=== PATIENT | male | born 1945 | race American Indian/Alaskan Native ===

== ENCOUNTER 2017-06-23 06:05 | Day surgery (SDC) | payer MEDICARE, OTHER ==
[2017-06-23] MEDS ORDERED: NACL 0.9% 1000 ML 1,000 ML IV SCH (07:00)
[2017-06-23] MEDS ORDERED: NACL 0.9% 1000 ML 1,000 ML ONE (07:26)
[2017-06-23 07:37] LABS: Blood Urea Nitrogen 27 mg/dL (9-20)
[2017-06-23 10:57] VITALS: BP 169/88
--- NOTE | 2017-06-24 08:28 | Cat Scan Report ---
FINAL REPORT EXAM: CT ANGIO ABD/FEMORAL ABD AORTA HISTORY: Atherosclerosis of [place] arteries, B/L extremitie TECHNIQUE: CT images are acquired through the abdominal aorta extending through both lower extremities following intravenous administration of contrast. Transaxial, coronal and sagittal Reformations with maximal intensity projection are provided. PRIORS: None FINDINGS: The abdominal aorta is normal in course and caliber with densely scattered atherosclerosis. There is severe stenosis in both renal arteries within 2 centimeters of the aortic ostia seen on the right on axial series 3, image 62 and on the left on image 66. There is complete occlusion of both femoral arteries with densely scattered atherosclerosis extending through the popliteal trifurcation. Three-vessel opacification is seen in the right leg to the level of the ankle secondary to distal reconstitution of flow and retrograde filling. In the left leg, there is severe stenosis and lack of contrast opacification throughout the length of the left posterior tibial artery. The anterior tibial and peroneal arteries in the left leg are opacified at the level of the tibial plafond, however there is severe atherosclerosis and stenosis throughout entire portion of the anterior tibial artery. There is coronary artery disease. Imaged intrathoracic contents are otherwise unremarkable. The liver, gallbladder, pancreas, and spleen are unremarkable. There is thickening of the left adrenal gland without focal nodule. Kidneys are normal in size, axis and position. No hydroureteronephrosis. There are 3 millimeter nonobstructive stones in both collecting systems. A right lower pole renal cyst measures up to 19 millimeters. The urinary bladder is unremarkable. There are numerous prostatic radiodensities. Small and large bowel are normal in caliber. No free air, free fluid, or lymphadenopathy identified. No acute or aggressive appearing skeletal findings. IMPRESSION: Complete bilateral femoral arterial occlusion with severe stenosis extending through the popliteal trifurcations. Additional severe stenosis is present in the major arteries of the left greater than right lower extremity, as detailed above. Coronary artery disease.
== END 2017-06-23 14:25 | disposition home or self-care (01) ==
LOC: CATHLABREC 06:05
PROVIDERS: ATTEND Surgery Vascular Surgery
DX: I70.203 Unspecified atherosclerosis of native arteries of extremities, bilateral legs (principal); N20.0 Calculus of kidney; N28.1 Cyst of kidney, acquired; I25.10 Atherosclerotic heart disease of native coronary artery without angina pectoris
CPT/HCPCS: 36415; 75635; 82565; 84520; 96360; 96361; J7030; Q9967

== ENCOUNTER 2018-10-04 08:19 | Observation (INO) | payer MEDICARE ==
[~2018-10-04 08:19] MED LIST: ANCEF/STERILE WATER 2 GM/20 ML 2 GM/20 ML SYRINGE IV NR
[2018-10-04 09:05] LABS: Basophils % (Auto) 0.6 % (0.0-1.8); Eosinophils # (Auto) 0.1 K/mm3 (0.0-0.4); Eosinophils % (Auto) 1.8 % (0.0-4.3); Hematocrit 39.9 % (35.5-45.6); Hemoglobin 12.9 gm/dl (11.8-15.2); Lymphocytes # (Auto) 1.5 K/mm3 (1.2-5.4); Lymphocytes % (Auto) 25.7 % (13.4-35.0); Mean Corpuscular HGB Conc 32 % (32-34); Mean Corpuscular Volume 87 fl (84-94); Monocytes # (Auto) 0.4 K/mm3 (0.0-0.8); Monocytes % (Auto) 7.6 % (0.0-7.3); Platelet Count 144 K/mm3 (140-440); Red Blood Count 4.61 M/mm3 (3.65-5.03); Red Cell Distribution Width 15.3 % (13.2-15.2)
[2018-10-04 09:20] LABS: Calcium 9.3 mg/dL (8.4-10.2)
[2018-10-04 09:30] LABS: INR 0.99 (0.87-1.13)
[2018-10-04 09:31] LABS: Partial Thromboplastin Time 27.5 Sec. (24.2-36.6)
[2018-10-04] MEDS: NACL 0.9% 1000 ML 1,000 ML IV SCH ×2 (09:48→11:25)
[2018-10-04] MEDS ORDERED: HEPARIN/NS 5000 UNIT/500ML(CATH LAB) 1,000 ML IR ONE (10:56)
[2018-10-04] MEDS ORDERED: XYLOCAINE 2% INFILTRATI ONE (10:56)
[2018-10-04] MEDS ORDERED: HEPARIN 10,000 UNITS/10 ML ONE (10:56)
[2018-10-04] MEDS ORDERED: CALAN ONE (10:56)
[2018-10-04] MEDS ORDERED: ANCEF/STERILE WATER 2 GM/20 ML 2 GM/20 ML SYRINGE IV ONE ×2 (10:57→10:58)
[2018-10-04] MEDS ORDERED: NITROGLYCERIN SYRINGE 0 ML ONE (10:57)
[2018-10-04] MEDS ORDERED: SUBLIMAZE ONE ×2 (11:28→12:58)
[2018-10-04] MEDS ORDERED: VERSED ONE ×2 (11:28→12:58)
[2018-10-04] MEDS: VERSED ONE ×2 (12:36→12:58)
[2018-10-04] MEDS: SUBLIMAZE ONE ×2 (12:36→12:58)
--- NOTE | 2018-10-04 14:58 | Operative Report ---
Operative Report Operative Report: Operative note: Date: 10/03/2018 Preoperative diagnosis: Life limiting short distance claudication of left lower extremity Postoperative diagnosis: Same. Operation: Ultrasound guided right common femoral access. Arterectomy of left superficial femoral and popliteal arteries. Surgeon: Constanza Weinberg. Asst.: None Anesthesia: Local with moderate sedation EBL: 75 mL Findings: Occluded superficial femoral artery from proximal portion was in-stent stenosis and institution of above-knee popliteal/distal SFA artery. Peroneal a rtery runoff Indications: 72-year-old male came in as a follow-up to the office complaining of left limiting short distance claudication of the left lower extremity with some multiple claudication of the right side. Patient underwent noninvasive arterial studies that showed decreased blood flow of bilateral lower extremity was left worse. Patient was explained risks, benefits and alternatives to procedure of performing revascularization of the left lower extremity. He understood and signed informed consent. Operative details: Patient was brought to the [facility] and placed in supine position. He has bilateral groins and left foot were prepped and draped in sterile fashion. Timeout was performed. Right femoral artery was accessed under continuous ultrasound guidance using micropuncture technique. It was changed to a 5 Divehi access sheath over a Bentson wire. Omni Flush catheter was next positioned in the distal aorta and aortoiliac injection was performed showing distal aorta and bilateral iliac arteries. The Soriano wire was advanced into the contralateral side and Omni Flush catheter was positioned in the left femoral artery. Angiogram with runoff was performed with findings mentioned above. The wire was maneuvered into profunda artery. Omni Flush catheter was removed and a 7 x 45 destination sheath was positioned at the left common femoral artery. Patient was heparinized with 5000 units of heparin. Using Navicross catheter and V18 wire I was able to cross the occluded area successfully and confirmed to be intravascular. Next, I deployed a 5 mm spider wire in the TPT trunk. HokeOne- atherectomy using LS-M device was performed. Next, a coated balloon angioplasty was performed with 4 mm in the popliteal distal artery and 5 mm throughout superficial femoral artery. Postintervention angiogram showed successful recanalization of occluded segment and no distal embolization. Spid er wire was retrieved successfully. Access site was sealed using 6 Divehi Angio-Seal. Patient tolerated the procedure well and was transferred back in stable condition.
--- NOTE | 2018-10-04 15:02 | Short Stay Summary ---
Short Stay Documentation Date of service: 10/04/18 - History H&P: obtained from office - Allergies and Medications Current Medications: Allergies Sulfa (Sulfonamide Antibiotics) Allergy (Verified 06/23/17 06:46) Rash Home Medications Medication Instructions Recorded Confirmed Last Taken Type Metoprolol [Lopressor TAB] 25 mg PO BID 06/23/17 10/04/18 10/03/18 History 25mg glipiZIDE [Glipizide] 5 mg PO DAILY 06/23/17 10/04/18 10/03/18 History 5mg hydroCHLOROthiazide [HCTZ] 25 mg PO DAILY 06/23/17 10/04/18 10/03/18 History 25mg raNITIdine HCl [Zantac 300 MG TAB] 300 mg PO DAILY 06/23/17 10/04/18 10/03/18 History 300mg Aspirin [Adult Low Dose Aspirin EC] 81 mg PO DAILY 10/04/18 10/04/18 10/03/18 History 81mg Clopidogrel Bisulfate [Clopidogrel] 75 mg PO DAILY 10/04/18 10/04/18 10/03/18 History 75mg Lisinopril [Zestril] 40 mg PO DAILY 10/04/18 10/04/18 10/03/18 History Simvastatin [Zocor TAB] 40 mg PO QHS 10/04/18 10/04/18 10/03/18 History Active Medications Cefazolin Sodium (Ancef/Sterile Water 2 Gm/20 Ml) 2 gm in 20 mls @ 80 mls/hr IV PREOP NR; Protocol Stop: 10/04/18 23:59 Sodium Chloride (Nacl 0.9% 1000 Ml) 1,000 mls @ 42 mls/hr IV DIRECT OCTAVIO Last Admin: 10/04/18 11:25 Dose: 42 mls/hr Documented by: - Brief post op/procedure progress note Date of procedure: 10/04/18 Pre-op diagnosis: life limiting short distance claudication on the left Post-op diagnosis: same Procedure: Ultrasound-guided right femoral access. Arthrectomy of left superficial femoral and popliteal arteries Anesthesia: MAC Findings: Occluded left superficial femoral artery, peroneal runoff Surgeon: JAMARI KENDRICK Estimated blood loss: 50-100ml Condition: stable - Disposition Condition at discharge: Good Disposition: DC-01 TO HOME OR SELFCARE Short Stay Discharge Plan Diet: regular Special Instructions: no heavy lifting Follow up with: DEJUAN MARSHALL MD [Primary Care Provider] - 7 Days JAMARI KENDRICK DO [Staff Physician] - 14 Days Prescriptions: Acetaminophen/Codeine [Tylenol /Codeine # 3 tab] 1 tab PO Q6H PRN #14 tab PRN Reason: Pain , Severe (7-10)
[2018-10-04 16:30] LABS: Hemoglobin 11.9 gm/dl (11.8-15.2)
[2018-10-04] MEDS ORDERED: D50W (25GM) Syringe IV ONE (16:43)
[2018-10-04 18:11] LABS: INR 1.08 (0.87-1.13)
[2018-10-04 18:12] LABS: Partial Thromboplastin Time 31.9 Sec. (24.2-36.6)
--- NOTE | 2018-10-04 18:21 | Event Note ---
Date: 10/04/18 Procedure called by the [employer] PACU nurse the patient had episodes of hypotension that was followed by another episode patient was diaphoretic and had a short period of poor mentation. Stat H&H was ordered as well as CT scan to rule out retroperitoneal hematoma. Hemoglobin was unchanged and CAT scan didn't reveal any evidence of hematoma. Now on reevaluation patient looks good, mentating well, blood pressure stable. Will admit patient for observation.
[2018-10-04] MEDS ORDERED: MORPHINE IV PRN (18:27)
[2018-10-04] MEDS ORDERED: ZOFRAN IV PRN (18:27)
[2018-10-04] MEDS ORDERED: NORCO 5/325 PO PRN (18:27)
[2018-10-04] MEDS ORDERED: NARCAN 0.4 MG/1 ML IV PRN (18:27)
[2018-10-04] MEDS ORDERED: TYLENOL PO PRN (18:27)
[2018-10-04 18:30] LABS: Creatine Kinase MB 3.7 ng/mL (0.0-4.0)
[2018-10-04 18:32] LABS: Calcium 8.7 mg/dL (8.4-10.2)
--- NOTE | 2018-10-04 18:47 | Cat Scan Report ---
PROCEDURE: CT ABDOMEN PELVIS WO CON TECHNIQUE: Standard unenhanced CT of the abdomen and pelvis. Coronal and sagittal reconstruction was also performed. CT DOSE LENGTH PRODUCT: 1055.6 mGycm HISTORY: Drop in BP COMPARISON: None FINDINGS: There is no evidence for intraperitoneal, retroperitoneal, or intramuscular hemorrhage. No abnormal f luid collection in the abdomen or pelvis is seen. Within the abdomen, the liver, spleen, pancreas, gallbladder, adrenal glands, and left kidney are unr emarkable. There is a 2.0 x 2.2 x 2.5 cm cyst off the lower pole right kidney posteriorly. This shoul d be confirmed as a cyst by ultrasound. No evidence for retroperitoneal or pelvic lymphadenopathy is seen. The bowel loops have normal calibe r. No soft tissue mass, fluid collection, inflammatory change, or free air is seen within the abdomen or pelvis. The appendix is Normal. Moderate calcification of aorta is seen. Within the pelvis, the bladder is nearly collapsed. The prostate is small in size and contains multip le small radiation seeds. Calcification of the seminal vesicles is noted. No evidence for mass or lym phadenopathy is seen in the pelvis. Images through the upper abdomen include the lung bases which are expanded and clear. Bony structures show moderate disc space narrowing from L1 through L5 bilateral facet joint degenerat sonali changes and large osteophytes anteriorly at these levels. Posterior spurring throughout these lev els causes bilateral neural foraminal narrowing. IMPRESSION: 1. No acute intra-abdominal process noted. No evidence for intraperitoneal, retroperitoneal, or intra muscular hemorrhage is seen 2. Exophytic focus off the lower pole right kidney, probably a cyst. However, this should be confirme d by ultrasound 3. Degenerative changes present throughout the lumbar spine This document is electronically signed by Beatriz Quispe MD., October 04 2018 06:46:00 PM ET
[2018-10-04] MEDS ORDERED: NACL 0.9% 1000 ML 1,000 ML IV SCH (19:00)
--- NOTE | 2018-10-04 19:30 | Event Note ---
Date: 10/04/18 Cardiology note dictated #1 transient hypotension and diaphoresis etiology uncertain? Vasovagal reaction #2 status post peripheral vascular surgery #3 hypertension #4 hyperlipidemia #5 diabetes #6 chronic smoking Patient responded to IV fluids and doing better at this time EKG shows no acute abnormalities. First set of cardiac enzymes are negative. CT scan and hemoglobin are stable. Plan is to continue monitoring closely. Thank you for allowing me to participate in the care of this gentleman Dr. CAROL Abdul
--- NOTE | 2018-10-04 19:38 | Consultation ---
History of Present Illness - Reason for Consult Consult date: 10/04/18 Requesting physician: JAMARI KENDRICK - History of Present Illness 72 YO Male with HTN, DM, HLD, CKD, PVD presents to [facility] for elective vascular procedure. Patient experienced postoperative syncope. Consult placed for medical management. Pt seen and evaluated upon arrival to his room. Pt de nies fever, chills, CP, Palpitations, NVD, Trauma, Productive cough, recent ill contacts, skin rash, BRBPR, or Hemoptysis. No reported nursing events. Past History Past Medical History: diabetes, hypertension, hyperlipidemia, PVD Past Surgical History: Other (Atherectomy, ) Social history: , lives with family, smoking Family history: diabetes, hypertension Medications and Allergies Allergies Allergy/AdvReac Type Severity Reaction Status Date / Time Sulfa (Sulfonamide Allergy Rash Verified 06/23/17 06:46 Antibiotics) Home Medications Medication Instructions Recorded Confirmed Last Taken Type Metoprolol [Lopressor TAB] 25 mg PO BID 06/23/17 10/04/18 10/03/18 History 25mg glipiZIDE [Glipizide] 5 mg PO DAILY 06/23/17 10/04/18 10/03/18 History 5mg hydroCHLOROthiazide [HCTZ] 25 mg PO DAILY 06/23/17 10/04/18 10/03/18 History 25mg raNITIdine HCl [Zantac 300 MG TAB] 300 mg PO DAILY 06/23/17 10/04/18 10/03/18 History 300mg Acetaminophen/Codeine [Tylenol 1 tab PO Q6H PRN #14 tab 10/04/18 Unknown Rx /Codeine # 3 tab] Aspirin [Adult Low Dose Aspirin EC] 81 mg PO DAILY 10/04/18 10/04/18 10/03/18 History 81mg Clopidogrel Bisulfate [Clopidogrel] 75 mg PO DAILY 10/04/18 10/04/18 10/03/18 History 75mg Lisinopril [Zestril] 40 mg PO DAILY 10/04/18 10/04/18 10/03/18 History Simvastatin [Zocor TAB] 40 mg PO QHS 10/04/18 10/04/18 10/03/18 History Active Meds: Active Medications Acetaminophen (Tylenol) 650 mg PO Q4H PRN PRN Reason: Pain MILD(1-3)/Fever >100.5/ART Acetaminophen/Hydrocodone Bitart ([place] 5/325) 2 each PO Q6H PRN PRN Reason: Pain, Moderate (4-6) Aspirin (Halfprin Ec) 81 mg PO DAILY [facility] Clopidogrel Bisulfate (Plavix) 75 mg PO DAILY [facility] Famotidine (Pepcid) 10 mg PO BID [facility] Glipizide (Glucotrol) 5 mg PO DAILY [facility] Hydrochlorothiazide (Hctz) 25 mg PO DAILY [facility] Cefazolin Sodium (Ancef/Sterile Water 2 Gm/20 Ml) 2 gm in 20 mls @ 80 mls/hr IV PREOP NR; Protocol Stop: 10/04/18 23:59 Sodium Chloride (Nacl 0.9% 1000 Ml) 1,000 mls @ 42 mls/hr IV DIRECT OCTAVIO Last Admin: 10/04/18 11:25 Dose: 42 mls/hr Documented by: Sodium Chloride (Nacl 0.9% 1000 Ml) 1,000 mls @ 75 mls/hr IV DIRECT OCTAVIO Last Admin: 10/04/18 18:54 Dose: 75 mls/hr Documented by: Insulin Human Lispro (Humalog) 0 unit SUB-Q ACHS OCTAVIO; Protocol Lisinopril (Zestril) 40 mg PO DAILY [facility] Metoprolol Tartrate (Lopressor) 25 mg PO BID [facility] Miscellaneous Medication (Simvastatin) 40 mg PO QHS [facility] Morphine Sulfate (Morphine) 2 mg IV Q4H PRN PRN Reason: Pain, Moderate (4-6) Naloxone HCl (Narcan 0.4 Mg/1 Ml) 0.1 mg IV Q2MIN PRN PRN Reason: Res Rate </= 8 or 02 SAT < 92% Ondansetron HCl (Zofran) 4 mg IV Q8H PRN PRN Reason: Nausea And Vomiting Review of Systems Constitutional: no weight loss, no weight gain, no fever, no chills Ears, nose, mouth and throat: no ear pain, no tinnitis, no decreased hearing Cardiovascular: syncope, no chest pain, no orthopnea, no palpitations, no rapid/irregular heart beat, no edema Respiratory: no cough, no cough with sputum, no excessive sputum, no shortness of breath, no dyspnea on exertion Gastrointestinal: no nausea, no vomiting, no diarrhea, no constipation Genitourinary Male: no dysuria, no hematuria, no flank pain, no discharge, no urinary frequency, no nocturia Rectal: no pain, no incontinence, no bleeding Musculoskeletal: no neck pain, no low back pain Integumentary: no rash, no pruritis, no redness, no sores, no wounds Neurological: no head injury, no transient paralysis, no paralysis, no weakness, no parathesias Psychiatric: no anxiety, no memory loss, no change in sleep habits, no insomnia, no hypersomnia, no change in appetite, no change in libido Exam - Constitutional Vitals: Temp Pulse Resp BP Pulse Ox 97.8 F 67 15 136/74 100 10/04/18 13:33 10/04/18 19:30 10/04/18 19:30 10/04/18 19:30 10/04/18 19:30 General appearance: Present: no acute distress, well-nourished - EENT Eyes: Present: PERRL ENT: hearing intact, clear oral mucosa - Neck Neck: Present: supple, normal ROM - Respiratory Respiratory effort: normal Respiratory: bilateral: CTA - Cardiovascular Heart Sounds: Present: S1 & S2. Absent: rub, click - Extremities Extremities: pulses symmetrical, No edema Peripheral Pulses: within normal limits - Abdominal General gastrointestinal: Present: soft, non-tender, non-distended, normal bowel sounds Male genitourinary: Present: normal - Integumentary Integumentary: Present: clear, warm, dry - Musculoskeletal Musculoskeletal: gait normal, strength equal bilaterally - Psychiatric Psychiatric: appropriate mood/affect, intact judgment & insight - Neurologic Neurologic: CNII-XII intact, moves all extremities Results - Labs CBC & Chem 7: 10/05/18 04:58 10/04/18 17:49 Labs: Abnormal lab results 10/04/18 10/04/18 10/04/18 Range/Units 08:34 08:34 16:45 RDW 15.3 H (13.2-15.2) % [place] % (Auto) 7.6 H (0.0-7.3) % Chloride (98-107) mmol/L BUN 38 H (9-20) mg/dL Creatinine 1.6 H (0.8-1.5) mg/dL Glucose 103 H (75-100) mg/dL POC Glucose 122 H (70-105) Total Creatine Kinase (55-170) units/L 10/04/18 10/04/18 Range/Units 17:45 17:49 RDW (13.2-15.2) % [place] % (Auto) (0.0-7.3) % Chloride 108.8 H (98-107) mmol/L BUN 37 H (9-20) mg/dL Creatinine 1.6 H (0.8-1.5) mg/dL Glucose 120 H (75-100) mg/dL POC Glucose (70-105) Total Creatine Kinase 332 H (55-170) units/L Assessment and Plan - Patient Problems (1) Syncope Current Visit: Yes Status: Acute Qualifiers: Syncope type: vasovagal syncope Qualified Code(s): R55 - Syncope and collapse Plan to address problem: IVF resuscitation therapy, remote telemetry, cardiology consulted, (2) HTN (hypertension) Current Visit: Yes Status: Acute Qualifiers: Hypertension type: essential hypertension Qualified Code(s): I10 - Essential (primary) hypertension Plan to address problem: Monitor bp q shift, continue medical management, (3) HLD (hyperlipidemia) Current Visit: Yes Status: Acute Plan to address problem: Statin therapy, lipid panel (4) Nicotine dependence Current Visit: Yes Status: Acute Qualifiers: Substance use status: in withdrawal Plan to address problem: Smoking cessation counseling, supportive care. (5) PVD (peripheral vascular disease) Current Visit: Yes Status: Acute Plan to address problem: S/P Atherectomy as per primary team.
[2018-10-04] MEDS ORDERED: NON-FORMULARY (Simvastatin 40 MG) PO SCH (22:00)
[2018-10-04] MEDS: PEPCID PO SCH (22:08)
[2018-10-05] MEDS: LOPRESSOR PO SCH ×2 (03:15→09:51)
[2018-10-05] MEDS: HumaLOG SUB-Q SCH ×3 (03:15→12:46)
[2018-10-05 05:33] LABS: Hematocrit 33.2 % (35.5-45.6); Hemoglobin 10.8 gm/dl (11.8-15.2)
[2018-10-05 06:13] LABS: Calcium 8.7 mg/dL (8.4-10.2)
[2018-10-05] MEDS ORDERED: KIONEX PO ONE (08:25)
[2018-10-05] MEDS ORDERED: D50W (25GM) Vial IV STA (08:27)
[2018-10-05] MEDS ORDERED: D50W (25GM) Syringe IV STA (08:57)
[2018-10-05] MEDS ORDERED: HumuLIN R IV SCH (09:00)
--- NOTE | 2018-10-05 09:05 | Consultation ---
CARDIOLOGY EVALUATION HISTORY OF PRESENT ILLNESS: The patient is a 72-year-old gentleman who is known to have peripheral vascular disease and underwent atherectomy of left superficial femoral and popliteal arteries. The patient is known to have a longstanding history of hypertension, diabetes and hyperlipidemia. Postop, in the recovery room, he had an episode of hypotension and profuse diaphoresis. The patient is seen for cardiac consultation at this time. The patient denies any chest pain, difficulty in breathing or palpitations. The patient was given intravenous fluids with improvement. At present, he is feeling much better. A CT scan has been done to rule out retroperitoneal hematoma and it was negative. Hemoglobin and hematocrit are satisfactory. First set of cardiac enzymes are satisfactory. EKG shows no acute abnormalities. REVIEW OF SYSTEMS: Essentially unremarkable. PHYSICAL EXAMINATION: GENERAL: Adult gentleman, well built, well nourished, in no distress, pleasant and cooperative. SKIN: Warm. VITAL SIGNS: Blood pressure is 118/70, pulse 84, oxygen saturation is 100, respirations 18. HEAD, EYES, EARS, NOSE AND THROAT: Unremarkable. NECK: Supple. No thyromegaly. Both carotids are palpable and equal. Neck veins are flat. CHEST: Symmetrical. LUNGS: Clear. CARDIOVASCULAR: S1 and S2 are heard. No S3. ABDOMEN: Soft, nontender, no hepatosplenomegaly. EXTREMITIES: No calf tenderness. Peripheral pulses are satisfactory. Extremities are noted to be warm. DIAGNOSTIC DATA: EKG sinus rhythm, possible old inferior ND, minor anterior ST changes. LABORATORY DATA: Hemoglobin 12.9 and 11.9, potassium 4.4, BUN 37, creatinine 1.6, blood sugar 120. Troponin less than 0.010. IMPRESSION: 1. Transient hypotension in the setting of postop femoral atherectomy, ?vasovagal reaction. 2. Hypertension. 3. Diabetes. 4. Hyperlipidemia. 5. History of smoking. The patient is seen for cardiac evaluation. Clinically, cardiac status is stable. So far enzymes are negative. CT scan is negative. The patient will be monitored and followed closely with you. Discussed with the family members also. Thank you for allowing me to participate in the care of this pleasant gentleman. JOB# [id number] KBM/[id number]
[2018-10-05] MEDS: PEPCID PO SCH (09:50)
[2018-10-05] MEDS ORDERED: HCTZ PO SCH (10:00)
[2018-10-05] MEDS ORDERED: HALFPRIN EC PO SCH (10:00)
[2018-10-05] MEDS ORDERED: GLUCOTROL PO SCH (10:00)
[2018-10-05] MEDS ORDERED: ZESTRIL PO SCH (10:00)
[2018-10-05] MEDS ORDERED: PLAVIX PO SCH (10:00)
--- NOTE | 2018-10-05 10:29 | Progress Note ---
Assessment and Plan Pt s/p perc arterial intervention. Post-procedure the pt developed hypotension and became diaphoretic. He was evaluated for possible post procedural RP bleed which proved to be negative. His condition improved. Cardiology was consulted to kevin. It was felt that this likely represented a vasovagal event. He was kept overnight to follow. He has had no further issues, and appears stable for d/c. Discussed with cardiology. Pt to f/u as outpt. - Patient Problems (1) Vasovagal episode Current Visit: Yes Status: Suspected (2) PVD (peripheral vascular disease) Current Visit: Yes Status: Acute (3) Hypotension after procedure Current Visit: Yes Status: Resolved (4) HLD (hyperlipidemia) Current Visit: Yes Status: Acute (5) HTN (hypertension) Current Visit: Yes Status: Acute Qualifiers: Hypertension type: essential hypertension Qualified Code(s): I10 - Essential (primary) hypertension (6) Nicotine dependence Current Visit: Yes Status: Acute Qualifiers: Substance use status: in withdrawal Subjective Date of service: 10/05/18 Interval history: Pt is awake and alert, without any further complaints overnight. OOB ambulating in the room without difficulty. Objective - Constitutional Vitals: Vital Signs - 12hr 10/04/18 10/05/18 10/05/18 23:29 03:33 05:08 Temperature 98.3 F 98.1 F Pulse Rate 72 72 64 Respiratory 18 18 Rate Blood Pressure 123/70 135/63 O2 Sat by Pulse 99 99 Oximetry 10/05/18 09:48 Temperature Pulse Rate Respiratory Rate Blood Pressure O2 Sat by Pulse 98 Oximetry General appearance: Present: no acute distress - EENT Eyes: EOM intact ENT: hearing intact - Respiratory Respiratory effort: normal Extremities: no ischemia, normal temperature (right groin soft, bandage intact without signs of active bleeding. No obvious surrounding erythema or indura tion.) - Gastrointestinal General gastrointestinal: Present: soft, non-tender - Neurologic Neurologic: no focal deficits - Psychiatric Psychiatric: appropriate mood/affect, intact judgment & insight, cooperative - Labs CBC & Chem 7: 10/05/18 04:58 10/05/18 04:58 Labs: Abnormal lab results 10/04/18 10/04/18 10/04/18 Range/Units 16:45 17:45 17:49 Hgb (11.8-15.2) gm/dl Hct (35.5-45.6) % Potassium (3.6-5.0) mmol/L Chloride 108.8 H (98-107) mmol/L BUN 37 H (9-20) mg/dL Creatinine 1.6 H (0.8-1.5) mg/dL Glucose 120 H (75-100) mg/dL POC Glucose 122 H (70-105) Total Creatine Kinase 332 H (55-170) units/L 10/04/18 10/05/18 10/05/18 Range/Units 22:28 00:42 04:58 Hgb 10.8 L (11.8-15.2) gm/dl Hct 33.2 L (35.5-45.6) % Potassium (3.6-5.0) mmol/L Chloride (98-107) mmol/L BUN (9-20) mg/dL Creatinine (0.8-1.5) mg/dL Glucose (75-100) mg/dL POC Glucose 149 H (70-105) Total Creatine Kinase 297 H (55-170) units/L 10/05/18 Range/Units 04:58 Hgb (11.8-15.2) gm/dl Hct (35.5-45.6) % Potassium 5.2 H (3.6-5.0) mmol/L Chloride 107.5 H (98-107) mmol/L BUN 36 H (9-20) mg/dL Creatinine (0.8-1.5) mg/dL Glucose 118 H (75-100) mg/dL POC Glucose (70-105) Total Creatine Kinase (55-170) units/L Medications & Allergies - Medications Allergies/Adverse Reactions: Allergies Sulfa (Sulfonamide Antibiotics) Allergy (Verified 06/23/17 06:46) Rash Home Medications: Home Medications Medication Instructions Recorded Confirmed Last Taken Type Metoprolol [Lopressor TAB] 25 mg PO BID 06/23/17 10/04/18 10/03/18 History 25mg glipiZIDE [Glipizide] 5 mg PO DAILY 06/23/17 10/04/18 10/03/18 History 5mg hydroCHLOROthiazide [HCTZ] 25 mg PO DAILY 06/23/17 10/04/18 10/03/18 History 25mg raNITIdine HCl [Zantac 300 MG TAB] 300 mg PO DAILY 06/23/17 10/04/18 10/03/18 History 300mg Acetaminophen/Codeine [Tylenol 1 tab PO Q6H PRN #14 tab 10/04/18 Unknown Rx /Codeine # 3 tab] Aspirin [Adult Low Dose Aspirin EC] 81 mg PO DAILY 10/04/18 10/04/18 10/03/18 History 81mg Clopidogrel Bisulfate [Clopidogrel] 75 mg PO DAILY 10/04/18 10/04/18 10/03/18 History 75mg Lisinopril [Zestril] 40 mg PO DAILY 10/04/18 10/04/18 10/03/18 History Simvastatin [Zocor TAB] 40 mg PO QHS 10/04/18 10/04/18 10/03/18 History Active Medications: Generic Name Dose Route Start Last Admin Trade Name Freq PRN Reason Stop Dose Admin Acetaminophen 650 mg 10/04/18 18:27 Tylenol PO Q4H PRN Pain MILD(1-3)/Fever >100.5/ART Acetaminophen/Hydrocodone Bitart 2 each 10/04/18 18:27 [place] 5/325 PO Q6H PRN Pain, Moderate (4-6) Aspirin 81 mg 10/05/18 10:00 10/05/18 09:50 Halfprin Ec PO 81 mg DAILY [facility] Administration Clopidogrel Bisulfate 75 mg 10/05/18 10:00 10/05/18 09:50 Plavix PO 75 mg DAILY [facility] Administration Famotidine 10 mg 10/04/18 22:00 10/05/18 09:50 Pepcid PO 10 mg BID [facility] Administration Glipizide 5 mg 10/05/18 10:00 10/05/18 09:50 Glucotrol PO 5 mg DAILY [facility] Administration Hydrochlorothiazide 25 mg 10/05/18 10:00 10/05/18 09:50 Hctz PO 25 mg DAILY [facility] Administration Sodium Chloride 1,000 mls @ 42 mls/hr 10/04/18 06:00 10/04/18 11:25 Nacl 0.9% 1000 Ml IV 42 mls/hr DIRECT [facility] Administration Sodium Chloride 1,000 mls @ 75 mls/hr 10/04/18 19:00 10/04/18 18:54 Nacl 0.9% 1000 Ml IV 75 mls/hr DIRECT [facility] Administration Insulin Human Lispro 0 unit 03/25/19 22:00 10/05/18 03:15 Humalog SUB-Q Not Given ACHS [facility] Protocol Insulin Human Regular 10 units 10/05/18 09:00 10/05/18 09:44 Humulin R IV 10/05/18 11:00 10 units ONCE [facility] Administration Metoprolol Tartrate 25 mg 10/04/18 22:00 10/05/18 09:51 Lopressor PO 25 mg BID [facility] Administration Miscellaneous Medication 40 mg 10/04/18 22:00 10/04/18 22:09 Simvastatin PO Not Given QHS [facility] Morphine Sulfate 2 mg 10/04/18 18:27 Morphine IV Q4H PRN Pain, Moderate (4-6) Naloxone HCl 0.1 mg 10/04/18 18:27 Narcan 0.4 Mg/1 Ml IV Q2MIN PRN Res Rate </= 8 or 02 SAT < 92% Ondansetron HCl 4 mg 10/04/18 18:27 Zofran IV Q8H PRN Nausea And Vomiting
--- NOTE | 2018-10-05 11:08 | Short Stay Summary ---
Short Stay Documentation Date of service: 10/05/18 Narrative H&P: See original Short stay. - History Past Medical History: diabetes, hypertension, hyperlipidemia, PVD Past Surgical History: Other (Atherectomy, ) Social history: , lives with family, smoking - Allergies and Medications Current Medications: Allergies Sulfa (Sulfonamide Antibiotics) Allergy (Verified 06/23/17 06:46) Rash Home Medications Medication Instructions Recorded Confirmed Last Taken Type Metoprolol [Lopressor TAB] 25 mg PO BID 06/23/17 10/04/18 10/03/18 History 25mg glipiZIDE [Glipizide] 5 mg PO DAILY 06/23/17 10/04/18 10/03/18 History 5mg hydroCHLOROthiazide [HCTZ] 25 mg PO DAILY 06/23/17 10/04/18 10/03/18 History 25mg raNITIdine HCl [Zantac 300 MG TAB] 300 mg PO DAILY 06/23/17 10/04/18 10/03/18 History 300mg Acetaminophen/Codeine [Tylenol 1 tab PO Q6H PRN #14 tab 10/04/18 Unknown Rx /Codeine # 3 tab] Aspirin [Adult Low Dose Aspirin EC] 81 mg PO DAILY 10/04/18 10/04/18 10/03/18 History 81mg Clopidogrel Bisulfate [Clopidogrel] 75 mg PO DAILY 10/04/18 10/04/18 10/03/18 History 75mg Lisinopril [Zestril] 40 mg PO DAILY 10/04/18 10/04/18 10/03/18 History Simvastatin [Zocor TAB] 40 mg PO QHS 10/04/18 10/04/18 10/03/18 History Active Medications Acetaminophen (Tylenol) 650 mg PO Q4H PRN PRN Reason: Pain MILD(1-3)/Fever >100.5/ART Acetaminophen/Hydrocodone Bitart ([place] 5/325) 2 each PO Q6H PRN PRN Reason: Pain, Moderate (4-6) Aspirin (Halfprin Ec) 81 mg PO DAILY [facility] Last Admin: 10/05/18 09:50 Dose: 81 mg Documented by: Clopidogrel Bisulfate (Plavix) 75 mg PO DAILY [facility] Last Admin: 10/05/18 09:50 Dose: 75 mg Documented by: Famotidine (Pepcid) 10 mg PO BID [facility] Last Admin: 10/05/18 09:50 Dose: 10 mg Documented by: Glipizide (Glucotrol) 5 mg PO DAILY [facility] Last Admin: 10/05/18 09:50 Dose: 5 mg Documented by: Hydrochlorothiazide (Hctz) 25 mg PO DAILY [facility] Last Admin: 10/05/18 09:50 Dose: 25 mg Documented by: Sodium Chloride (Nacl 0.9% 1000 Ml) 1,000 mls @ 75 mls/hr IV DIRECT [facility] Last Admin: 10/04/18 18:54 Dose: 75 mls/hr Documented by: Insulin Human Lispro (Humalog) 0 unit SUB-Q ACHS [facility]; Protocol Last Admin: 10/05/18 03:15 Dose: Not Given Documented by: Metoprolol Tartrate (Lopressor) 25 mg PO BID [facility] Last Admin: 10/05/18 09:51 Dose: 25 mg Documented by: Miscellaneous Medication (Simvastatin) 40 mg PO QHS [facility] Last Admin: 10/04/18 22:09 Dose: Not Given Documented by: Morphine Sulfate (Morphine) 2 mg IV Q4H PRN PRN Reason: Pain, Moderate (4-6) Naloxone HCl (Narcan 0.4 Mg/1 Ml) 0.1 mg IV Q2MIN PRN PRN Reason: Res Rate </= 8 or 02 SAT < 92% Ondansetron HCl (Zofran) 4 mg IV Q8H PRN PRN Reason: Nausea And Vomiting - Physical exam Extremities: no ischemia, normal temperature (right groin soft, bandage intact without signs of active bleeding. No obvious surrounding erythema or induration.) - Hospital course Hospital course: Pt presented for perc procedure. Following the procedure he became hypotensive and diaphoretic. This likely represented a vasovagal event. He improved, but was kept overnight for further observation. The pt appeared stable for d/c on 10/05/18. - Disposition Condition at discharge: Good Disposition: DC-01 TO HOME OR SELFCARE - Discharge Diagnoses (1) Vasovagal episode Status: Suspected (2) PVD (peripheral vascular disease) Status: Acute (3) Hypotension after procedure Status: Resolved (4) HLD (hyperlipidemia) Status: Acute (5) HTN (hypertension) Status: Acute Qualifiers: Hypertension type: essential hypertension Qualified Code(s): I10 - Essential (primary) hypertension (6) Nicotine dependence Status: Acute Qualifiers: Substance use status: in withdrawal Short Stay Discharge Plan Activity: advance as tolerated Weight Bearing Status: Weight Bear as Tolerated Diet: diabetic Wound: keep clean and dry Follow up with: DEJUAN MARSHALL MD [Primary Care Provider] - 7 Days JAMARI KENDRICK DO [Staff Physician] - 14 Days Forms: Post Arteriogram Instruct Prescriptions: Acetaminophen/Codeine [Tylenol /Codeine # 3 tab] 1 tab PO Q6H PRN #14 tab PRN Reason: Pain , Severe (7-10)
[2018-10-05 12:06] VITALS: BP 136/79
--- NOTE | 2018-10-05 13:22 | Progress Note ---
Assessment and Plan Currently stable cardiac status. BPs WNL today, orthostatics unremarkable. Suspect vasovagal episode post-operatively. Pt may discharge home from cardiology standpoint. Recommend follow up in our office with Dr. CAROL Abdul within 1-2 weeks of hospital discharge ([phone] The patient has been seen in conjunction with Dr. Dennis Abdul who agrees with the assessment and plan of care. - Patient Problems (1) Hypotension after procedure Current Visit: Yes Status: Resolved (2) Vasovagal episode Current Visit: Yes Status: Suspected (3) PVD (peripheral vascular disease) Current Visit: Yes Status: Chronic (4) History of hypertension Current Visit: Yes Status: Chronic (5) Diabetes Current Visit: Yes Status: Chronic (6) HLD (hyperlipidemia) Current Visit: Yes Status: Chronic (7) Nicotine dependence Current Visit: Yes Status: Chronic Qualifiers: Substance use status: in withdrawal Subjective Date of service: 10/05/18 Principal diagnosis: PVD Interval history: pt resting in bed, no current complaints. BPs WNL today. Objective Last Vital Signs Temp 97.9 F 10/05/18 12:05 Pulse 75 10/05/18 12:05 Resp 18 10/05/18 12:05 BP 136/79 10/05/18 12:05 Pulse Ox 99 10/05/18 12:05 - Physical Examination General: No Apparent Distress HEENT: Positive: PERRL, Normocephaly, Mucus Membranes Moist Neck: Positive: neck supple, trachea midline Cardiac: Positive: Reg Rate and Rhythm, S1/S2 Lungs: Positive: Decreased Breath Sounds Neuro: Positive: Grossly Intact Abdomen: Positive: Soft. Negative: Tender Skin: Negative: Rash Musculoskeletal: No Pain Extremities: Absent: edema - Labs and Meds Cardiac Enzymes 10/04/18 10/05/18 Range/Units 17:45 00:42 CK-MB (CK-2) 3.7 3.0 (0.0-4.0) ng/mL Coagulation 10/04/18 Range/Units 17:46 PT 14.7 (12.2-14.9) Sec. INR 1.08 (0.87-1.13) APTT 31.9 (24.2-36.6) Sec. CBC 10/04/18 10/05/18 Range/Units 16:25 04:58 Hgb 11.9 10.8 L (11.8-15.2) gm/dl Hct 36.0 33.2 L (35.5-45.6) % Comprehensive Metabolic Panel 10/04/18 10/05/18 Range/Units 17:49 04:58 Sodium 142 139 (137-145) mmol/L Potassium 4.4 5.2 H (3.6-5.0) mmol/L Chloride 108.8 H 107.5 H (98-107) mmol/L Carbon Dioxide 23 24 (22-30) mmol/L BUN 37 H 36 H (9-20) mg/dL Creatinine 1.6 H 1.5 (0.8-1.5) mg/dL Glucose 120 H 118 H (75-100) mg/dL Calcium 8.7 8.7 (8.4-10.2) mg/dL - Imaging and Cardiology EKG: report reviewed, image reviewed - Telemetry EKG Rhythm: Sinus Rhythm
--- NOTE | 2018-10-05 15:10 | Progress Note ---
Assessment and Plan Assessment and plan: PVD s./p atherectomy management per Vascular, Attending Hypertension BP normal Diabetes mellitus type 2 Fingerstick qac and hs Full code status Patient stable to go home today from hospitalist view, History Interval history: Feels better wants to go home Hospitalist Physical - Physical exam Narrative exam: GEN: Not in acute distress, lying in bed, HEENT: Normocephalic, atraumatic, Neck: supple, No JVD heart: S1 and S2 reg, no murmurs, rubs or gallop Lungs: Clear to auscultation bilaterally, no wheeze Abd:soft, non tender, non distended, normal bowel sounds Ext: No edema,no clubbing, no cyanosis, Neuro:Awake,alert,oriented X 3, no focal signs, moves all ext Psych: normal mood - Constitutional Vitals: Temp Pulse Resp BP Pulse Ox 97.9 F 75 18 136/79 99 10/05/18 12:05 10/05/18 12:05 10/05/18 12:05 10/05/18 12:05 10/05/18 12:05 General appearance: Present: no acute distress Results - Labs CBC & Chem 7: 10/05/18 04:58 10/05/18 14:20 Labs: Laboratory Last Values WBC 5.8 K/mm3 (4.5-11.0) 10/04/18 08:34 RBC 4.61 M/mm3 (3.65-5.03) 10/04/18 08:34 Hgb 10.8 gm/dl (11.8-15.2) L 10/05/18 04:58 Hct 33.2 % (35.5-45.6) L 10/05/18 04:58 MCV 87 fl (84-94) 10/04/18 08:34 MCH 28 pg (28-32) 10/04/18 08:34 MCHC 32 % (32-34) 10/04/18 08:34 RDW 15.3 % (13.2-15.2) H 10/04/18 08:34 Plt Count 144 K/mm3 (140-440) 10/04/18 08:34 Lymph % (Auto) 25.7 % (13.4-35.0) 10/04/18 08:34 [place] % (Auto) 7.6 % (0.0-7.3) H 10/04/18 08:34 Eos % (Auto) 1.8 % (0.0-4.3) 10/04/18 08:34 Baso % (Auto) 0.6 % (0.0-1.8) 10/04/18 08:34 Lymph # 1.5 K/mm3 (1.2-5.4) 10/04/18 08:34 [place] # 0.4 K/mm3 (0.0-0.8) 10/04/18 08:34 Eos # 0.1 K/mm3 (0.0-0.4) 10/04/18 08:34 Baso # 0.0 K/mm3 (0.0-0.1) 10/04/18 08:34 Seg Neutrophils % 64.3 % (40.0-70.0) 10/04/18 08:34 Seg Neutrophils # 3.7 K/mm3 (1.8-7.7) 10/04/18 08:34 PT 14.7 Sec. (12.2-14.9) 10/04/18 17:46 INR 1.08 (0.87-1.13) 10/04/18 17:46 APTT 31.9 Sec. (24.2-36.6) 10/04/18 17:46 Sodium 139 mmol/L (137-145) 10/05/18 04:58 Potassium 4.4 mmol/L (3.6-5.0) 10/05/18 14:20 Chloride 107.5 mmol/L (98-107) H 10/05/18 04:58 Carbon Dioxide 24 mmol/L (22-30) 10/05/18 04:58 Anion Gap 13 mmol/L 10/05/18 04:58 BUN 36 mg/dL (9-20) H 10/05/18 04:58 Creatinine 1.5 mg/dL (0.8-1.5) 10/05/18 04:58 Estimated GFR 56 ml/min 10/05/18 04:58 BUN/Creatinine Ratio 24 % 10/05/18 04:58 Glucose 118 mg/dL (75-100) H 10/05/18 04:58 POC Glucose 78 (70-105) 10/05/18 12:07 Calcium 8.7 mg/dL (8.4-10.2) 10/05/18 04:58 Total Creatine Kinase 297 units/L (55-170) H 10/05/18 00:42 CK-MB (CK-2) 3.0 ng/mL (0.0-4.0) 10/05/18 00:42 CK-MB (CK-2) Rel Index 1.0 (0-4) 10/05/18 00:42 Troponin T < 0.010 ng/mL (0.00-0.029) 10/05/18 00:42 Blood Type A POSITIVE 10/04/18 17:46 Antibody Screen Negative 10/04/18 17:46 Active Medications - Current Medications Current Medications: Generic Name Dose Route Start Last Admin Trade Name Freq PRN Reason Stop Dose Admin Acetaminophen 650 mg 10/04/18 18:27 Tylenol PO Q4H PRN Pain MILD(1-3)/Fever >100.5/ART Acetaminophen/Hydrocodone Bitart 2 each 10/04/18 18:27 [place] 5/325 PO Q6H PRN Pain, Moderate (4-6) Aspirin 81 mg 10/05/18 10:00 10/05/18 09:50 Halfprin Ec PO 81 mg DAILY [facility] Administration Clopidogrel Bisulfate 75 mg 10/05/18 10:00 10/05/18 09:50 Plavix PO 75 mg DAILY [facility] Administration Famotidine 10 mg 10/04/18 22:00 10/05/18 09:50 Pepcid PO 10 mg BID OCT[facility]IO Administration Glipizide 5 mg 10/05/18 10:00 10/05/18 09:50 Glucotrol PO 5 mg DAILY [facility] Administration Hydrochlorothiazide 25 mg 10/05/18 10:00 10/05/18 09:50 Hctz PO 25 mg DAILY [facility] Administration Sodium Chloride 1,000 mls @ 75 mls/hr 10/04/18 19:00 10/04/18 18:54 Nacl 0.9% 1000 Ml IV 75 mls/hr DIRECT [facility] Administration Insulin Human Lispro 0 unit 10/04/18 22:00 10/05/18 12:46 Humalog SUB-Q Not Given ACHS [facility] Protocol Metoprolol Tartrate 25 mg 10/04/18 22:00 10/05/18 09:51 Lopressor PO 25 mg BID [facility] Administration Miscellaneous Medication 40 mg 10/04/18 22:00 10/04/18 22:09 Simvastatin PO Not Given QHS [facility] Morphine Sulfate 2 mg 10/04/18 18:27 Morphine IV Q4H PRN Pain, Moderate (4-6) Naloxone HCl 0.1 mg 10/04/18 18:27 Narcan 0.4 Mg/1 Ml IV Q2MIN PRN Res Rate </= 8 or 02 SAT < 92% Ondansetron HCl 4 mg 10/04/18 18:27 Zofran IV Q8H PRN Nausea And Vomiting
--- NOTE | 2018-10-05 15:11 | Event Note ---
Date: 10/05/18 Patient medically stable to discharge home
== END 2018-10-05 17:47 | disposition home or self-care (01) ==
LOC: CATHLABREC 08:19 → 4A 18:28
PROVIDERS: ADMIT Surgery Vascular Surgery; ATTEND Surgery Vascular Surgery
DX: I70.213 Atherosclerosis of native arteries of extremities with intermittent claudication, bilateral legs (principal); I95.81 Postprocedural hypotension; I10 Essential (primary) hypertension; E11.9 Type 2 diabetes mellitus without complications; E78.5 Hyperlipidemia, unspecified; K21.9 Gastro-esophageal reflux disease without esophagitis; M54.5 Low back pain; E11.51 Type 2 diabetes mellitus with diabetic peripheral angiopathy without gangrene; F17.210 Nicotine dependence, cigarettes, uncomplicated
CPT/HCPCS: 36415; 37225; 74176; 75625; 75710; 76937; 80048; 82550; 82553; 82962; 84132; 84484; 85014; 85018; 85025; 85610; 85730; 86850; 86900; 86901; 93005; 93010; 96374; 96375; 96376; 99406; C1714; C1760; C1769; C1884; C1887; C2623; G0378; J0690; J1644; J2250; J3010; J3246; J7030; J1815; Q9967

== ENCOUNTER 2018-10-22 07:02 | Day surgery (SDC) | payer MEDICARE ==
[~2018-10-22 07:02] MED LIST changes: +NACL 0.9% 1000 ML 1,000 ML IV SCH
[2018-10-22 07:55] LABS: Basophils % (Auto) 0.7 % (0.0-1.8); Eosinophils # (Auto) 0.1 K/mm3 (0.0-0.4); Eosinophils % (Auto) 2.2 % (0.0-4.3); Hematocrit 34.8 % (35.5-45.6); Hemoglobin 11.3 gm/dl (11.8-15.2); Lymphocytes # (Auto) 1.1 K/mm3 (1.2-5.4); Lymphocytes % (Auto) 19.6 % (13.4-35.0); Mean Corpuscular HGB Conc 33 % (32-34); Mean Corpuscular Volume 88 fl (84-94); Monocytes # (Auto) 0.6 K/mm3 (0.0-0.8); Monocytes % (Auto) 9.8 % (0.0-7.3); Platelet Count 150 K/mm3 (140-440); Red Blood Count 3.98 M/mm3 (3.65-5.03)
[2018-10-22 07:58] LABS: INR 1.01 (0.87-1.13)
[2018-10-22 07:59] LABS: Partial Thromboplastin Time 25.2 Sec. (24.2-36.6)
[2018-10-22 08:00] VITALS: BP 120/74
[2018-10-22 08:33] LABS: Calcium 8.8 mg/dL (8.4-10.2)
--- NOTE | 2018-10-22 09:07 | Event Note ---
Date: 10/22/18 Patient creatinine this morning is 2.0. Creatinine just a few weeks ago was 1.5. Patient appears to have had some deterioration in renal function after his previous intervention. We'll cancel procedure today because its purely elective. Patient has claudication at a distance. He is not in limb loss jeopardy. Recommend evaluation by primary care physician and or charger tester prior to any further interventions.
--- NOTE | 2018-10-22 09:08 | Short Stay Summary ---
Short Stay Documentation Date of service: 10/22/18 - History H&P: obtained from office - Allergies and Medications Current Medications: Allergies Sulfa (Sulfonamide Antibiotics) Allergy (Verified 06/23/17 06:46) Rash Home Medications Medication Instructions Recorded Confirmed Last Taken Type Metoprolol [Lopressor TAB] 25 mg PO BID 06/23/17 10/22/18 10/21/18 History glipiZIDE [Glipizide] 5 mg PO DAILY 06/23/17 10/22/18 10/21/18 History hydroCHLOROthiazide [HCTZ] 25 mg PO DAILY 06/23/17 10/22/18 10/21/18 21:00 History raNITIdine HCl [Zantac 300 MG TAB] 300 mg PO DAILY 06/23/17 10/22/18 10/21/18 History Acetaminophen/Codeine [Tylenol 1 tab PO Q6H PRN #14 tab 10/04/18 10/22/18 Unknown Rx /Codeine # 3 tab] Aspirin [Adult Low Dose Aspirin EC] 81 mg PO DAILY 10/04/18 10/22/18 10/21/18 21:00 History Clopidogrel Bisulfate [Clopidogrel] 75 mg PO DAILY 10/04/18 10/22/18 10/21/18 21:00 History Lisinopril [Zestril] 40 mg PO DAILY 10/04/18 10/22/18 10/21/18 History Simvastatin [Zocor TAB] 40 mg PO QHS 10/04/18 10/22/18 10/21/18 History Active Medications Cefazolin Sodium (Ancef/Sterile Water 2 Gm/20 Ml) 2 gm in 20 mls @ 80 mls/hr IV PREOP NR; Protocol Stop: 10/22/18 23:00 Sodium Chloride (Nacl 0.9% 1000 Ml) 1,000 mls @ 42 mls/hr IV DIRECT [facility] Last Admin: 10/22/18 07:49 Dose: 42 mls/hr Documented by: - Disposition Condition at discharge: Good Disposition: DC-01 TO HOME OR SELFCARE Short Stay Discharge Plan Activity: no restrictions Diet: regular Follow up with: DEJUAN MARSHALL MD [Primary Care Provider] - 7 Days
== END 2018-10-22 09:35 | disposition home or self-care (01) ==
LOC: CATHLABREC 07:02
PROVIDERS: ATTEND Surgery Vascular Surgery
DX: I70.213 Atherosclerosis of native arteries of extremities with intermittent claudication, bilateral legs (principal); F17.210 Nicotine dependence, cigarettes, uncomplicated; I10 Essential (primary) hypertension; E78.5 Hyperlipidemia, unspecified; E11.9 Type 2 diabetes mellitus without complications; K21.9 Gastro-esophageal reflux disease without esophagitis; Z53.8 Procedure and treatment not carried out for other reasons; Z79.899 Other long term (current) drug therapy; Z86.79 Personal history of other diseases of the circulatory system; Z79.82 Long term (current) use of aspirin; Z88.2 Allergy status to sulfonamides; Z79.01 Long term (current) use of anticoagulants
CPT/HCPCS: 36415; 80048; 85025; 85610; 85730; J7030